=== PATIENT | male | born 1935 | race Caucasian/White ===

== ENCOUNTER 2017-06-04 05:55 | Observation (INO) | payer MEDICARE ==
[~2017-06-04] VITALS: Ht 170.2 cm; Wt 88.9 kg
[~2017-06-04 05:55] MED LIST: BENA40TA PO; LEVO50TA4 PO; METO25TA3 PO; MULT-65 PO; OMEG100046 PO; PRAV80TA2 PO; WARF-18 PO; WARF-23 PO
[2017-06-04] MEDS ORDERED: ceFAZolin 1,000 MG/NS 100 ML IV SCH ×2 (06:30)
[2017-06-04] MEDS ORDERED: METOPROLOL TARTRATE 25 MG TAB PO PRN (06:30)
[2017-06-04] MEDS ORDERED: LACTATED RINGER'S 1000 ML INJ 1,000 ML IV SCH (06:30)
[2017-06-04] MEDS ORDERED: CHLORHEXIDINE GLUCONATE 2 % 1 PACK (2 CLOTHS) TOPICAL PRN (06:30)
[2017-06-04] MEDS ORDERED: INSULIN HUMAN REGULAR 1,000 UNITS/10 ML VIAL SQ PRN (06:30)
[2017-06-04] MEDS ORDERED: SODIUM CHLORID 0.9% 500 ML IV PRN (06:30)
[2017-06-04] MEDS ORDERED: LACTATED RINGER'S 1000 ML IV PRN (06:30)
[2017-06-04] MEDS ORDERED: POVIDONE IODINE 5% (ANTISEPSIS KIT) 4 APPLICATIONS EACH NARE PRN (06:30)
[2017-06-04] MEDS ORDERED: FISHCAP4 PO (06:59)
[2017-06-04 07:03] LABS: PROTHROMBIN TIME - PATIENT 10.1 SEC (9.8-11.6)
[2017-06-04] MEDS ORDERED: GELFOAM SIZE 100 ONE (07:43)
[2017-06-04] MEDS ORDERED: GENTAMICIN SULFATE 80 MG/2 ML VIAL ONE (07:43)
[2017-06-04] MEDS ORDERED: THROMBIN (TOPICAL) 5,000 UNIT VIAL ONE (07:43)
[2017-06-04] MEDS ORDERED: LIDOCAINE 1%/EPINEPHrine 1:100,000 SOLN 30 ML VIAL ONE (07:43)
[2017-06-04] MEDS ORDERED: BUPIVACAINE HCL PF 0.25% 30 ML VIAL ONE (07:45)
[2017-06-04] MEDS ORDERED: ceFAZolin 2 GM PREMIX 0 ML ONE (07:45)
[2017-06-04] MEDS ORDERED: BUPIVACAINE LIPOSOME PF 1.3% 20 ML VIAL ONE (07:54)
[2017-06-04] MEDS ORDERED: ceFAZolin INJ 1,000 MG VIAL ONE (08:29)
[2017-06-04] MEDS ORDERED: PROPOFOL 500 MG/50 ML INJ 100 ML ONE (08:35)
[2017-06-04] MEDS ORDERED: ACETAMINOPHEN 1000 MG/100 ML 100 ML IV ONE (08:35)
[2017-06-04] MEDS ORDERED: SUFentanil INJ 250 MCG/5 ML AMP ONE (08:35)
[2017-06-04] MEDS ORDERED: BUPIVACAINE LIPOSOME PF 1.3% 20 ML VIAL INFIL ONE (09:41)
--- NOTE | 2017-06-04 11:15 | EKG ---
Date Performed: 06/04/2017 Time Performed: 06:49:53 PTAGE: 81 years EKG: ATRIAL FIBRILLATION WITH ABERRANT CONDUCTION OR VENTRICULAR PREMATURE COMPLEXES ABNORMAL [facility] ECG PREVIOUS TRACING : 07/01/2016 08.47 Compared to the prior EKG, there is now in atrial fibrillat ion. DOCTOR: Cierra Jackson Interpretating Date/Time 06/04/2017 11:11:32
[2017-06-04] MEDS ORDERED: SODIUM CHLORIDE 0.9% 20 ML VIAL IV ONE (12:00)
[2017-06-04] MEDS ORDERED: GLYCOPYRROLATE 1 MG/5 ML SYRINGE IV PUSH ONE (12:00)
[2017-06-04] MEDS ORDERED: PHENYLEPH/NS 1000 MCG/10 ML SYR IV ONE (12:00)
[2017-06-04] MEDS ORDERED: ROCURONIUM INJ 50 MG/5 ML SYRINGE IV PUSH ONE (12:00)
[2017-06-04] MEDS ORDERED: LACTATED RINGER'S 1000 ML INJ 1,000 ML IV ONE (12:00)
[2017-06-04] MEDS ORDERED: PROPOFOL 200 MG/20 ML AMP IV ONE (12:00)
[2017-06-04] MEDS ORDERED: ePHEDrine/NS 25 MG/5 ML SYRINGE IV ONE (12:00)
[2017-06-04] MEDS ORDERED: NEOSTIGMINE 5 MG/5 ML SYRINGE IV PUSH ONE (12:00)
[2017-06-04] MEDS ORDERED: LIDOCAINE HCL 1% PF 5 ML SYRINGE OTHER ONE (12:00)
[2017-06-04] MEDS ORDERED: ONDANSETRON HCL 4 MG/2 ML VIAL IV PUSH ONE (12:00)
[2017-06-04] MEDS ORDERED: DEXAMETHASONE SOD PHOS 4 MG/ML VIAL IV ONE (12:00)
[2017-06-04] MEDS ORDERED: DO NOT ADM ANY ANTICOAGULANT DRUGS PRN (12:10)
[2017-06-04] MEDS ORDERED: NALOXONE HCL 0.4 MG/ML AMP IV PUSH PRN (12:15)
[2017-06-04] MEDS ORDERED: ONDANSETRON HCL 4 MG/2 ML VIAL IV PUSH PRN (12:15)
[2017-06-04] MEDS ORDERED: ACETAMINOPHEN/HYDROcodone 325 MG/5 MG TAB PO PRN (12:15)
--- NOTE | 2017-06-04 12:20 | PD.OP ---
Operative Report Date of Surgery: Jun 04, 2017 Preoperative Diagnosis: (1) Lumbar stenosis with neurogenic claudication 1. Severe L4 5 stenosis 2. Grade 1 L4-L5 spondylolisthesis 3. Neurogenic claudication Postoperative Diagnosis: (1) Lumbar stenosis with neurogenic claudication 1. Severe L4 5 stenosis 2. Grade 1 L4-L5 spondylolisthesis 3. Neurogenic claudication Procedure: 1. Bilateral L4 5 decompressive semi-hemilaminectomy, medial facetectomy 2. Placement L4 5 interspinous process decompression device (Coflex) Anesthesia: General Surgeon: John Pickering Milling Machine Set Up Operator(s): Anthony Iglesias Operation and Findings: Findings: Severe L4 5 ligament hypertrophy and stenosis with mild subluxation of the facet into the lateral recess. Procedure in detail: The patient was brought into the operating room and general endotracheal anesthesia induced without difficulty. JYOTI hose and sequential compression devices were placed. The Williamson catheter was placed. Lines were established by anesthesia. The patient was positioned on the concentric Sonu table with the side bolsters and all extremities appropriately padded. Appropriate timeout procedure was performed with all personnel present and in agreement. 1% Xylocaine with epinephrine was used for local infiltration over the incision site which was made at the midline L4-5 level. The incision was carried sharply down to the lumbodorsal fascia which was incised adjacent to the spinous processes. Duarte elevator was used for subperiosteal elevation of paraspinous musculature and fascia away from the lamina and spinous process. The deep self-retaining retractor was placed. The appropriate levels were verified with intraoperative C-arm. Microscope was moved into place and used for the remainder of the procedure including the closure. At the L4 5 level starting on the right side and then working across the midline to the opposite side, the TPS drill with a 5 mm bone bur was used to remove the inferior one third of the more cephalad lamina and the superior aspect of the more caudal lamina along with a moderate amount of the bilateral medial facet, taking care not to disrupt the integrity of the facet or pars intra-articularis. There appeared to be at least mild instability of the L4 5 facet prior to the Coflex placement. Great care was taken to remove as little of the facet as possible during the decompression portion of the procedure. However due to the orientation of the facets, the inferior left L4 5 facet was very thin after the initial portion of the decompression, and the inferior aspect of the facet fractured and was removed at the superior aspect was still intact. The hypertrophied ligamentum flavum was elevated away from the thecal sac with the thin ligament dissector and resected with the 15 blade knife and the Kerrison rongeur out to the level of the deep lateral recess to completely decompress the thecal sac and exiting nerve roots. The exiting nerve roots were followed to the level of the medial pedicle to ensure that they were well decompressed. The interspinous ligament at the L4-5 level was very deteriorated, with the spinous processes mostly [id number]. The Potts Otto rongeur was used to remove the remaining interspinous ligament and decorticate the inferior L 4 and superior L 5 spinous process edge. The TPS drill was used to flatten out the dorsal aspect of the L5 and L4 lamina, taking care not to compromise the integrity of the lamina. The 10 mm Coflex trial was then placed and appeared to give good support to the spinous processes and facets. Any remaining soft tissue along the interspinous region and epidural space and interlaminar region was carefully removed to provide a clean tract for the Coflex device. The 10 mm Coflex device was then placed at the L4 5 level with the anterior aspect of the device placed as anterior as possible without compromising the thecal sac. The side wings were crimped at the L5 and L4 levels to secure the device. The placement was checked with intraoperative C-arm and felt to be satisfactory. A blunt hook was passed beneath the anterior aspect of the Coflex device to make certain that there was no compromise of the spinal canal. There appeared to be excellent support of the lamina and facet after the device was placed. The nerve roots appeared well decompressed at the end of the procedure. No spinal fluid leakage was encountered. The disc and annulus was visualized to make sure that there was no significant disc displacement or herniation. Bleeding was carefully controlled with the bipolar forceps. A 10 Persian drain was left in place and brought out through a small incision at the left mid lumbar region, secured to the skin with nylon suture. The closure was performed with 0 Vicryl interrupted for the deep and superficial fascia, with 3-0 Vicryl interrupted subcutaneous closure, and 4-0 Vicryl running subcuticular closure. A dressing of sterile Mastisol, Steri- Strips, and Primapore was placed. The patient was taken to recovery room in stable condition. All counts were correct at the end of the case. Estimated blood loss was 100 cc. John Pickering MD Jun 04, 2017 12:20
[2017-06-04] MEDS: D5-1/2 NS + KCL 20 MEQ INJ 1,000 ML IV SCH ×2 (12:35→21:08)
[2017-06-04] MEDS ORDERED: HYDROmorphone HCL PF 2 MG/ML VIAL IV PUSH PRN (12:45)
[2017-06-04] MEDS ORDERED: MORPHINE SULFATE 4 MG/ML INJ IV PUSH PRN (12:45)
--- NOTE | 2017-06-04 13:24 | RADRPT ---
EXAM DATE/TIME: 06/04/2017 09:39 [place] COMPARISON: No previous studies available for comparison. INDICATIONS : L4-5 Laminectomy with coflex placement. MEDICAL HISTORY : Hypertension. Stroke. Arthritis. A-fib. SURGICAL HISTORY : None. ENCOUNTER: Initial ACUITY: 1 day PAIN SCORE: Non-responsive. LOCATION: Lumbar spine. FINDINGS: A single lateral view of the lumbar spine was performed. Interspinous process device between L4-5 lev el. CONCLUSION: Intraoperative film demonstrates interspinous device at L4-5. Noam Diaz MD on June 04, 2017 at 13:22 Board Certified Radiologist. This report was verified electronically.
[2017-06-04 15:10] VITALS: BP 131/75; PULSE 83; RESP 18; TEMP 96.5; O2SAT 98
[2017-06-04 19:15] VITALS: BP 139/81; PULSE 109; RESP 24; O2SAT 97
[2017-06-04] MEDS: DOCUSATE SODIUM 100 MG CAP PO SCH (20:44)
[2017-06-04] MEDS: METOPROLOL TARTRATE 25 MG TAB PO SCH (20:48)
[2017-06-04] MEDS: ACETAMINOPHEN/HYDROcodone 325 MG/10 MG TAB PO PRN (21:09)
[2017-06-04 21:49] VITALS: PULSE 92; RESP 18; O2SAT 99
[2017-06-05 00:23] VITALS: BP 157/63; PULSE 98; RESP 18; TEMP 96.7; O2SAT 98
[2017-06-05 03:50] VITALS: BP 106/70; PULSE 95; RESP 18; TEMP 96.7; O2SAT 97
[2017-06-05] MEDS: ACETAMINOPHEN/HYDROcodone 325 MG/10 MG TAB PO PRN (05:45)
[2017-06-05] MEDS ORDERED: LEVOTHYROXINE SODIUM 50 MCG TAB PO SCH (06:00)
[2017-06-05 06:40] LABS: AUTOMATED NEUTROPHIL # 7.9 TH/MM3 (1.8-7.7); BASOPHIL % 0.2 % (0.0-2.0); EOSINOPHIL % 0.1 % (0.0-4.0); HEMATOCRIT 39.4 % (39.0-51.0); HEMOGLOBIN 13.3 GM/DL (13.0-17.0); LYMPHOCYTE # 0.8 TH/MM3 (1.0-4.8); MEAN CELL VOLUME 92.3 FL (80.0-100.0); MEAN CORPUSCULAR HEMOGLOBIN 31.1 PG (27.0-34.0); MEAN CORPUSCULAR HGB CONC 33.7 % (32.0-36.0); MONO % 8.8 % (0.0-8.0); MONOCYTE # 0.8 TH/MM3 (0-0.9); NEUT % 82.9 % (16.0-70.0); PLATELET COUNT 184 TH/MM3 (150-450); RED BLOOD COUNT 4.27 MIL/MM3 (4.50-5.90); RED CELL DISTRIBUTION WIDTH 14.1 % (11.6-17.2); WHITE BLOOD COUNT 9.6 TH/MM3 (4.0-11.0)
[2017-06-05 07:07] LABS: BICARBONATE 27.3 MEQ/L (21.0-32.0); CREATININE 1.12 MG/DL (0.60-1.30)
[2017-06-05 08:00] VITALS: BP 163/72; PULSE 96; RESP 16; TEMP 97.4; O2SAT 98
[2017-06-05] MEDS: D5-1/2 NS + KCL 20 MEQ INJ 1,000 ML IV SCH (08:30)
[2017-06-05] MEDS ORDERED: HYDR-3583 PO (08:45)
--- NOTE | 2017-06-05 08:45 | HHI.DCPOC ---
Discharge Care Plan Diagnosis: (1) Lumbar stenosis with neurogenic claudication Your Health Problems Are: Difficulty with ADL Incision/Drains Exercise Tolerance Chronic Pain Goals to Promote Your Health * To prevent worsening of your condition and complications * To maintain your health at the optimal level Directions to Meet Your Goals Take your medications as prescribed Follow your dietary instruction Follow activity as directed Keep your appointments as scheduled Take your immunizations and boosters as scheduled If your symptoms worsen call your PCP, if no PCP go to Urgent Care Center or Emergency Room Smoking is Dangerous to Your Health. Avoid second hand smoke Call the 24-hour hour crisis hotline for domestic abuse at John Pickering MD Jun 05, 2017 08:45
[2017-06-05] MEDS ORDERED: LISINOPRIL 20 MG TAB PO SCH (09:00)
[2017-06-05] MEDS ORDERED: MULTIVITAMIN TAB PO SCH (09:00)
[2017-06-05] MEDS: DOCUSATE SODIUM 100 MG CAP PO SCH (10:19)
[2017-06-05] MEDS: METOPROLOL TARTRATE 25 MG TAB PO SCH (10:19)
--- NOTE | 2017-06-05 20:05 | HHI.DS ---
Discharge Summary Admission Date Jun 04, 2017 at 12:07 Discharge Date: Jun 05, 2017 Admitting Diagnosis L4 5 stenosis with facet instability (1) Lumbar stenosis with neurogenic claudication Diagnosis: Principal ICD Code: M48.062 - Spinal stenosis, lumbar region with neurogenic claudication Procedures Date of Surgery: Jun 04, 2017 Preoperative Diagnosis: (1) Lumbar stenosis with neurogenic claudication 1. Severe L4 5 stenosis 2. Grade 1 L4-L5 spondylolisthesis 3. Neurogenic claudication Postoperative Diagnosis: (1) Lumbar stenosis with neurogenic claudication 1. Severe L4 5 stenosis 2. Grade 1 L4-L5 spondylolisthesis 3. Neurogenic claudication Procedure: 1. Bilateral L4 5 decompressive semi-hemilaminectomy, medial facetectomy 2. Placement L4 5 interspinous process decompression device (Coflex) CBC/BMP: 06/05/17 0600 06/05/17 0600 Significant Findings Laboratory Tests Test 06/04/17 06:35 06/05/17 06:00 Red Blood Count 4.27 MIL/MM3 (4.50-5.90) Neutrophils (%) (Auto) 82.9 % (16.0-70.0) Lymphocytes (%) (Auto) 8.0 % (9.0-44.0) Monocytes (%) (Auto) 8.8 % (0.0-8.0) Neutrophils # (Auto) 7.9 TH/MM3 (1.8-7.7) Lymphocytes # (Auto) 0.8 TH/MM3 (1.0-4.8) Blood Urea Nitrogen 21 MG/DL (7-18) Random Glucose 116 MG/DL (74-106) Estimat Glomerular Filtration Rate 63 ML/MIN (>89) Hospital Course Patient admitted for the above noted procedure performed without complication. Postop day #1 minimal drain output. Drain discontinued. Out of bed with physical therapy, ambulating well without assist. Pain control with oral medications. Tolerating diet well. Dressing dry and intact. Stable for discharge postop day #1. Instructions given. Prescription hydrocodone for pain Follow-up appointment 10-14 days Pt Condition on Discharge: Good Discharge Disposition: Discharge Home Discharge Instructions DIET: Follow Instructions for: As Tolerated, No Restrictions ACTIVITIES You can perform: Weight Bearing As Tiffany Activities to Avoid: Lifting/Bending, Strenuous Activity New Medications: Hydrocodone/Acetaminophen (Hydrocodone-Acetamin 10-325 mg) 10 Mg-325 Mg Tablet 1 TAB PO Q4H PRN for PAIN SCALE 6 TO 10, #60 TAB 0 Refills Continued Medications: Benazepril (Benazepril) 40 Mg Tab 40 MG PO DAILY for Blood Pressure Management, #30 TAB 0 Refills Levothyroxine (Levothyroxine) 50 Mcg Tab 50 MCG PO DAILY for Thyroid, #30 TAB 0 Refills Metoprolol Tartrate (Metoprolol Tartrate) 25 Mg Tab 25 MG PO BID, #60 TAB 0 Refills Multiple Vitamin (Multi-Vitamin Daily) 1 Tab Tab 1 TAB PO DAILY for Nutritional Supplement, TAB 0 Refills Pravastatin (Pravastatin) 80 Mg Tab 80 MG PO DAILY for Cholesterol Management, #30 TAB 0 Refills Warfarin (Warfarin) 5 Mg Tab 5 MG PO S,M,W,TH,F for Blood Clot Prevention, #30 TAB 0 Refills Warfarin (Warfarin) 2.5 Mg Tab 2.5 MG PO SAT,TU for Blood Clot Prevention, #30 TAB 0 Refills Discontinued Medications: Fish Oil-Cholecalciferol (Fish Oil + D3) 1,200-1,000 Mg-Unit Cap 1 CAP PO DAILY for Nutritional Supplement, CAP 0 Refills Griffin-3/Dha/Epa/Fish Oil (Fish Oil 1,000 mg Softgel) 1,000 Mg (120 Mg-180 Mg) Capsule 1 CAP PO DAILY Additional Information Patient instructed to resume warfarin on 06/07/17 John Pickering MD Jun 05, 2017 20:05
== END 2017-06-05 13:21 | disposition home or self-care (01) ==
LOC: HSDC 05:55 → HSDI 12:07 → N06A 14:40
PROVIDERS: ADMIT Neurological Surgery; ATTEND Neurological Surgery
DX: M48.062 Spinal stenosis, lumbar region with neurogenic claudication (principal); M43.16 Spondylolisthesis, lumbar region; I48.91 Unspecified atrial fibrillation; I49.3 Ventricular premature depolarization; R94.31 Abnormal electrocardiogram [ECG] [EKG]; G89.29 Other chronic pain; M19.90 Unspecified osteoarthritis, unspecified site; Z86.73 Personal history of transient ischemic attack (TIA), and cerebral infarction without residual deficits
CPT/HCPCS: 00630; 22859; 63047; 72020; 76000; 80048; 84132; 85025; 85610; 93005; 94150; 97161; C1713; C9290; G0378; J0131; J0690; J1100; J1580; J2370; J2405; J2710; J3010; J3480; J7120